=== PATIENT | male | born 2000 | race Two or more races ===

== ENCOUNTER 2023-09-27 05:45 | Emergency (ER) | payer MEDICAID ==
[~2023-09-27] VITALS: Ht 157.5 cm; Wt 75.0 kg
[2023-09-27] MEDS ORDERED: IBUP-45 PO (06:05)
[2023-09-27] MEDS: METHOCARBAMOL 500 MG TABLET PO ONE (06:57)
[2023-09-27] MEDS: KETOROLAC TROMETHAMINE 60 MG/2 ML VIAL IM ONE (06:58)
[2023-09-27] MEDS: ACETAMINOPHEN/CODEINE 300-30 MG TABLET PO ONE (06:58)
[2023-09-27 07:32] VITALS: BP 123/75; PULSE 82; RESP 16; TEMP 98
[2023-09-27] MEDS ORDERED: ACET-2080 PO (09:13)
[2023-09-27] MEDS ORDERED: GABA-1181 PO (09:13)
[2023-09-27] MEDS ORDERED: IBUP-1554 PO (09:13)
== END 2023-09-27 09:50 | disposition home or self-care (01) ==
LOC: EMS 05:49 → EDBD 05:49 → EMS 09:50
DX: G89.29 Other chronic pain (principal); M54.50 Low back pain, unspecified; Z98.890 Other specified postprocedural states
CPT/HCPCS: 99283; 72100; 96372; J1885